=== PATIENT | female | born 1950 | race Two or more races ===

== ENCOUNTER 2021-03-31 13:33 | Inpatient (IN) | payer OTHER ==
[~2021-03-31] VITALS: Ht 157.5 cm; Wt 106.6 kg
[~2021-03-31 13:33] MED LIST: CALTRATE PLUS T1 TAB; COZAAR50 MG; SYNTHROID200 MCG PO
[2021-03-31] MEDS ORDERED: CITRACAL-VIT D1 EACH (13:55)
[2021-03-31] MEDS ORDERED: MYSOLINE50 MG (13:55)
== END 2021-04-08 13:09 | disposition home or self-care (01) | DRG 593 ==
LOC: ER 13:33 → MEDJ 18:13
PROVIDERS: ADMIT Internal Medicine; ATTEND Internal Medicine
PROC: 8E0ZXY6 Isolation (ICD-10-PCS; principal; 2021-04-01)
DX: L97.328 Non-pressure chronic ulcer of left ankle with other specified severity (principal); L03.116 Cellulitis of left lower limb; N17.8 Other acute kidney failure; B96.5 Pseudomonas (aeruginosa) (mallei) (pseudomallei) as the cause of diseases classified elsewhere; E03.8 Other specified hypothyroidism; N18.9 Chronic kidney disease, unspecified; E87.5 Hyperkalemia; I87.2 Venous insufficiency (chronic) (peripheral); Z20.822 Contact with and (suspected) exposure to COVID-19; I12.9 Hypertensive chronic kidney disease with stage 1 through stage 4 chronic kidney disease, or unspecified chronic kidney disease